=== PATIENT | female | born 1995 | race Caucasian/White ===

== ENCOUNTER 2019-04-21 16:36 | Emergency (ER) | payer OTHER ==
[~2019-04-21] VITALS: Ht 165.1 cm; Wt 63.5 kg
--- NOTE | 2019-04-21 17:01 | NUR ---
Pt c/o cough and sore throat 2-3 days, occassional HOANG, denies fever, and generalized weakness; LS clear and =. Pt denies CP, SOB, dizziness, n/v, no distress noted. Swabs done for Flu and strep throat, taken to lab.
--- NOTE | 2019-04-21 17:36 | NUR ---
Gave pt RX and d/c instructions, verbalized understanding.
== END 2019-04-21 17:38 | disposition home or self-care (01) ==
LOC: ER 16:40
DX: J02.8 Acute pharyngitis due to other specified organisms (principal); Z60.2 Problems related to living alone
CPT/HCPCS: 36415; 86403; 87070; 87400; A4663